=== PATIENT | male | born 1985 | race Caucasian/White ===

== ENCOUNTER 2024-07-04 22:54 | Emergency (ER) | payer OTHER, SELFPAY ==
[2024-07-04 23:02] VITALS: BP 145/67; PULSE 92; RESP 17; TEMP 37.3; O2SAT 99; BMI 25.8
--- NOTE | 2024-07-04 23:06 | ED.URI ---
HPI - URI/Sore Throat General Chief Complaint: Upper Respiratory Symptoms Stated Complaint: extreme sore throat, runny nose, nausea Time Seen by Provider: 07/04/24 23:06 Source: patient Mode of arrival: Ambulatory History of Present Illness HPI Narrative: 38-year-old male with sore throat since yesterday, last Tylenol dose 3-1/2 hours ago, has not taken any ibuprofen, has history of ulcerative colitis for which he takes azathioprine and sulfasalazine. No injury or trauma. Has been able to take soft mechanical protein shake and warm tortilla soup earlier today. Able to move his neck. Denies cough shortness of breath or chest pain. Does not feel feverish. No ear pain or drainage. No skin rashes. No abdominal discomfort, denies nausea or vomiting. No loose stools, denies black or red stools. Denies painful or frequent urination. Related Data Home Medications Medication Instructions Recorded Confirmed azathioprine 50 mg tablet mg PO DAILY 07/04/24 finasteride 5 mg tablet (Proscar) 5 mg PO DAILY 07/04/24 07/04/24 sulfasalazine 500 mg tablet g PO BID 07/04/24 Allergies Allergy/AdvReac Type Severity Reaction Status Date / Time No Known Drug Allergies Allergy Verified 07/04/24 23:06 Patient History Medical History (Updated 07/05/24 @ 00:58 by Juanpablo Mariano MD) Ulcerative colitis Social History Smoking Status: Never smoker Smoking Status: Never smoker Exam Narrative Exam Narrative: GENERAL: Well-developed patient, in mild distress. HEAD: Atraumatic. Normocephalic. EYES: Pupils equal round and reactive. Extraocular motions intact. No scleral icterus. No injection or drainage. ENT: Nose without bleeding, purulent drainage. Throat with bilateral erythema, symmetrical, no exudates or ulcers or vesicles. Normal phonation, normal range of motion neck NECK: Trachea midline. Non tender CARDIOVASCULAR: Regular rate and rhythm without murmurs, gallops, or rubs. RESPIRATORY: Clear to auscultation. Breath sounds equal bilaterally. No wheezes, rales, or rhonchi. GASTROINTESTINAL: Abdomen soft, non-tender, nondistended. EXTREMITIES: No edema or joint tenderness. BACK: Nontender without deformity or crepitance. No flank tenderness. NEURO: AOx3. Motor functions grossly nonfocal SKIN: No rash or erythema of visible areas Initial Vital Signs Initial Vital Signs: Vital Signs Temperature 99.2 F 07/04/24 23:02 Pulse Rate 92 H 07/04/24 23:02 Respiratory Rate 17 07/04/24 23:02 Blood Pressure 145/67 H 07/04/24 23:02 Pulse Oximetry 99 07/04/24 23:02 Oxygen Delivery Method Room Air 07/04/24 23:02 Course Orders Ordered: ED Orders 07/04/24 23:06 Covid-19 + FLU A/B + RSV - PCR Stat Strep Grp A by PCR Rapid Stat 07/04/24 23:27 Monotest Stat 07/05/24 01:05 Throat Culture Stat Discontinued Medications Tramadol HCl (Tramadol 50 Mg Prepack) 1 bottle MISC DIRECTED ONE Stop: 07/05/24 00:56 Last Admin: 07/05/24 01:11 Dose: 1 bottle Documented By: FLORI Vital Signs Vital signs: Vital Signs - 8 hr 07/04/24 23:02 07/05/24 01:16 Temperature 99.2 F Pulse Rate 92 H 80 Respiratory Rate 17 18 Blood Pressure 145/67 H 148/81 H Pulse Oximetry 99 95 Oxygen Delivery Method Room Air Room Air MDM - URI/Sore Throat Lab Data Attestation: I reviewed the patient's lab results. Lab results narrative: Rapid strep screen negative, throat culture pending. COVID, flu, RSV swab negative. Monospot negative Labs: Lab Results 07/04/24 07/05/24 Range/Units 23:06 00:20 SARS-CoV-2 (PCR) Negative (Negative) Monoscreen Negative (Negative) Influenza A (RT-PCR) Flu a negative (NEGATIVE) Influenza B (RT-PCR) Flu b negative (NEGATIVE) RSV (PCR) Negative (Negative) Group A Strep (PCR) Negative (Negative) MDM Narrative Medical decision making narrative: Sore throat for 2 days, enquiring about mononucleosis, no direct exposure, he would like testing, some redness on examination without exudate. Rapid strep screen pending. Monotest ordered per patient request. COVID/flu/RSV swab sent from triage, results still pending. Declines repeat dose of Tylenol for now. Strep screen negative. Throat culture pending. COVID/RSV/flu swab negative. Monospot blood test results still pending. Monospot negative. Discussed symptomatic treatment with antipyretic Tylenol. He will continue his azathioprine and sulfasalazine chronic medications for ulcerative colitis for now. Discharged home. Return precautions discussed Discharge Plan Departure Patient Disposition: Home Clinical Impression: Sore throat Instructions: Sore Throat Activity Restrictions/Additional Instructions: Sore throat symptoms. Rapid strep screen negative, backup throat culture pending. Swabs for COVID and influenza and RSV were negative. Monospot blood test was negative for a mononucleosis screen. Suspected viral pharyngitis. Take Tylenol as needed. Drink plenty of fluids. Home pack of tramadol to use if needed. Avoid anti-inflammatory medications as you are doing, due to your history of ulcerative colitis, continue taking your azathioprine and sulfasalazine chronic medications. Recheck symptoms with your regular doctor Monday if symptoms persist. Return to this/nearest emergency department for any change worsening symptoms or any concerns prior Prescriptions: No Action sulfasalazine 500 mg Tablet PO BID Rx Instructions: give with food (meal/snack) azathioprine 50 mg Tablet PO DAILY finasteride [Proscar] 5 mg Tablet 5 mg PO DAILY Stand Alone Forms: Patient Portal/API/Survey
[2024-07-04 23:39] LABS: Strep Grp A by PCR Rapid Negative (Negative)
[2024-07-05] LABS: COVID-19 CEPHEID 4-PLEX PCR Negative (Negative); Influenza A - CEPHEID Flu A NEGATIVE (NEGATIVE); Influenza B - CEPHEID Flu B NEGATIVE (NEGATIVE); Respiratory Syncytial Virus Negative (Negative)
[2024-07-05 00:44] LABS: Monotest Negative (Negative)
[2024-07-05] MEDS: TRAMADOL 50 MG PREPACK 1 BOTTLE MISC (01:11)
[2024-07-05 01:16] VITALS: BP 148/81; PULSE 80; RESP 18; O2SAT 95
== END 2024-07-05 01:17 | disposition home or self-care (01) ==
PROVIDERS: Emergency Provider Emergency Medicine
DX: J02.9 Acute pharyngitis, unspecified (principal)
CPT/HCPCS: 0241U; 36415; 86318; 87070; 87651; 99281; 99282